=== PATIENT | male | born 1985 | race Caucasian/White ===

== ENCOUNTER 2025-02-24 04:20 | Emergency (ER) | payer SELFPAY ==
[~2025-02-24] VITALS: Ht 175.3 cm; Wt 65.0 kg
[2025-02-24 04:45] VITALS: O2SAT 98
[2025-02-24 05:11] VITALS: BP 135/86; PULSE 84; RESP 14; TEMP 36.8; O2SAT 99
== END 2025-02-24 10:06 | disposition left against medical advice (07) ==
LOC: ER 04:20
DX: R11.2 Nausea with vomiting, unspecified (principal); Z53.21 Procedure and treatment not carried out due to patient leaving prior to being seen by health care provider

== ENCOUNTER 2025-07-25 17:22 | Emergency (ER) | payer OTHER ==
[~2025-07-25] VITALS: Ht 172.7 cm; Wt 59.0 kg
[2025-07-25 17:26] VITALS: O2SAT 98
[2025-07-25 19:17] VITALS: PULSE 82; PULSE 90; RESP 16
[2025-07-25] MEDS: IPRATROPIUM/ALBUTEROL 0.5-3(2.5)MG/3ML NEB HHN ONE (19:17)
[2025-07-25] MEDS ORDERED: ALBU18HF2 IH (19:46)
[2025-07-25 20:15] VITALS: BP 134/84; PULSE 96; RESP 16; TEMP 37.1; O2SAT 98
== END 2025-07-25 20:19 ==
LOC: ER 17:22
DX: R06.02 Shortness of breath (principal); J45.909 Unspecified asthma, uncomplicated; Z98.890 Other specified postprocedural states
CPT/HCPCS: 71045; 94640; 98960; 99283; Z7610 ×3; 94070; 94664